=== PATIENT | male | born 1950 | race Caucasian/White ===

== ENCOUNTER 2016-10-27 10:56 | Inpatient (IN) | payer OTHER ==
[~2016-10-27] VITALS: Ht 167.6 cm; Wt 78.9 kg
[~2016-10-27 10:56] MED LIST: SITA1TAB7 PO
--- NOTE | 2016-10-27 14:44 | RADRPT ---
PROCEDURE: US Lower extremity Venous. CLINICAL INDICATION: Left leg pain TECHNIQUE: Multiple sonographic images of the left lower extremity deep venous system was obtained utilizing grayscale, color-flow, compressive sonography and doppler imaging with augmentation. The images were reviewed on a PACS workstation. COMPARISON: None. FINDINGS: There is no compressibility or flow within the left common femoral, superficial femoral, and poplite al veins. RPTAT: AA IMPRESSION: Extensive left leg DVT. The findings were given to Cydney Gibson Pa-c (José BROOKE) at 10/27/2016 2:42:23 PM by the techno logist at the time of examination. .Scott Berkowitz MD, MD Date Time Electronically viewed and signed by .Scott Berkowitz MD, on 10/27/2016 14:43 .S/
[2016-10-27] MEDS ORDERED: APIXABAN 5 MG TABLET PO ONE (15:00)
[2016-10-27] MEDS ORDERED: ONDANSETRON 4 MG INJ IV PRN ×2 (15:00→15:30)
[2016-10-27] MEDS ORDERED: ACETAMINOPHEN 325 MG TAB PO PRN ×2 (15:00→15:30)
[2016-10-27 15:27] LABS: BASOPHILS % 0.3 % (0.0-2.0); EOSINOPHILS % 0.4 % (0.0-7.0); HEMATOCRIT 46.4 % (42.0-52.0); LYMPHOCYTES # 1.2 10^3/ul (0.8-2.9); LYMPHOCYTES % 14.1 % (15.0-51.0); MEAN CORPUSCULAR HEMOGLOBIN 32.2 pg (29.0-33.0); MEAN CORPUSCULAR HGB CONC 34.5 g/dl (32.0-37.0); MEAN CORPUSCULAR VOLUME 93.6 fl (82.0-101.0); MEAN PLATELET VOLUME 7.5 fl (7.4-10.4); MONOCYTE # 0.6 10^3/ul (0.3-0.9); MONOCYTES % 6.9 % (0.0-11.0); NEUTROPHIL # 6.5 10^3/ul (1.6-7.5); NEUTROPHILS % 78.3 % (39.0-77.0); PLATELET COUNT 166 10^3/UL (140-440); RED BLOOD COUNT 4.96 10^6/ul (4.70-6.10); RED CELL DISTRIBUTION WIDTH 13.1 % (11.5-14.5); UNCORRECTED WBC 8.3 10^3/ul (4.8-10.8); WHITE BLOOD COUNT 8.3 10^3/ul (4.8-10.8)
[2016-10-27] MEDS ORDERED: NACL 0.9% 3 ML SYG IV SCH (15:30)
[2016-10-27] MEDS ORDERED: hydrALAzine 20 MG INJ IV PRN (15:30)
[2016-10-27] MEDS ORDERED: HYDROCODONE/APAP (5/325) TAB PO PRN (15:30)
[2016-10-27] MEDS ORDERED: morphine 2 MG INJ IV PRN (15:30)
[2016-10-27 15:31] LABS: PARTIAL THROMBOPLASTIN TIME 25.2 Sec (25.0-35.0); PROTIME 13.2 Sec (12.2-14.2)
[2016-10-27 15:35] LABS: CONDITION 1
[2016-10-27 15:38] VITALS: TEMP 98.1
[2016-10-27 15:49] LABS: POTASSIUM 4.6 mmol/L (3.5-5.1)
[2016-10-27 15:52] LABS: CALCIUM 9.9 mg/dl (8.4-10.2); CREATININE 1.41 mg/dl (0.61-1.24)
[2016-10-27] MEDS ORDERED: GLUCOSE GEL 15 GRAM TUBE PO PRN ×2 (16:00)
[2016-10-27] MEDS ORDERED: GLUCOSE GEL 15 GRAM TUBE BUCCAL PRN (16:00)
[2016-10-27] MEDS ORDERED: DEXTROSE 50% 50 ML SYRINGE IV PRN ×2 (16:00)
[2016-10-27] MEDS ORDERED: GLUCAGON 1 MG INJ IM PRN (16:00)
--- NOTE | 2016-10-27 16:03 | ERD ---
DATE OF SERVICE: 10/27/2016 HISTORY OF PRESENT ILLNESS: The patient is a 66-year-old male coming in complaining of swelling to his left leg with pain. He has noticed this starting yesterday. He has pain with flexion, walking, mild numbness and tingling to his extremities. He has had a history of blood clots in the past. L ast blood clot was in 2001. Patient is on aspirin but does not know if he is on any other medicati ons. He has not had any recent travel, no recent surgical history. No history of cancer. MEDICAL HISTORY: Hypercholesterolemia, hypertension. ALLERGIES TO MEDICATIONS: Denies. HOSPITALIZATIONS: Denies. SOCIAL HISTORY: Denies. REVIEW OF SYSTEMS: A 12-point review of systems was done. Refer to HPI for positives, all other sy stems negative. PHYSICAL EXAMINATION VITAL SIGNS: Temperature is 98.1, pulse 88, blood pressure 134/89, respiratory 18, O2 saturation 98 % on room air. Pain intensity of 4/10. GENERAL: The patient is well-appearing, well-nourished, no acute distress. HEENT: Atraumatic. Conjunctivae are pink. Pupils equal, round, and reactive to light. There is no s cleral icterus. Tympanic membranes clear bilaterally. Oropharynx clear. No nystagmus or photophobia . CHEST: Clear to auscultation bilaterally. There are no rales, wheezes or rhonchi. HEART: Regular rate and rhythm. No murmurs, clicks, rubs or gallops. No S3 or S4. ABDOMEN: Soft, nontender and nondistended. Good bowel sounds. No rebound or guarding. No gross domingo tonitis. No gross organomegaly or masses. No Adams sign or McBurney point tenderness. EXTREMITIES: The patient has swelling noted to the left extremity and pitting edema. The patient h as a positive Homans sign. He has tenderness to palpation over the posterior calf as well as behind the left knee extending up the leg. Pulses are intact. Cap refill is less than 2 seconds in dista l extremity. EMERGENCY ROOM COURSE: The patient had an x-ray done of the left lower extremity which showed exten sive left leg DVT, no compressibility or flow within the left common femoral, superficial femoral an d popliteal veins. This case was discussed with Dr. Tran about patient's admission. Patient will be admitted for medication. He was given a dose of Eliquis as well as drawn labs for CBC and PT, P TT, INR. Patient was stable. DIAGNOSIS: Deep venous thrombosis, left leg. MEDICAL DECISION MAKING: I have low suspicion for PE. The patient is not complaining of pleuritic chest pain or hemoptysis. Patient does not have shortness of breath. He is not tachycardic. The p atient will be admitted for anticoagulation therapy and close followup. DISPOSITION: Admission under the care of Dr. Tran to hospitalist. The patient was stable at the time of admission and aware of the diagnosis. Dictated By: TORRES LADD PA for RANDY LOGAN/PAULA Conf#: [id number] DID#: [id number]
[2016-10-27 16:05] VITALS: Ht 167.6 cm; Wt 78.9 kg
[2016-10-27 16:16] VITALS: BP 145/73; PULSE 71; RESP 16
--- NOTE | 2016-10-27 16:19 | HP ---
DATE OF ADMISSION: 10/27/2016 TIME OF EVALUATION: 1500 hours. REASON FOR ADMISSION: Left lower extremity swelling and pain. CONSULTATIONS: RITESH RUIZ MD, Vascular Surgery. HISTORY OF PRESENT ILLNESS: This is a 66-year-old male with past medical history of essential hypertension, type 2 diabetes mellitus, dyslipidemia and left lower extremity DVT in 2001. He came to the emergency room with chief complaint of left lower extremity swelling and pain. The patient verbalized that the pain and swelling got worse since 3:00 a.m. on 10/27. The patient was having pain from all the way up to the left thigh to the left foot. The patient was also complaining of numbness of the left lower extremity. The patient denied any recent prolonged bed rest. He denied any recent long flights or long drives. The patient denied any family history of DVTs. The patient was unable to explain how he was treated for his left lower extremity DVT in 2001. The patient denied any chest pain or dyspnea. He denied any syncope or presyncope. He denied any fevers, chills, nausea, vomiting, abdominal pain, diarrhea, hematochezia, or dysuria. In the emergency room, the patient underwent a left lower extremity venous Doppler study that showed no compressibility or flow within the left common femoral, superficial femoral and popliteal veins. The patient was given a single dose of oral factor Xa inhibitor (Apixaban) in the emergency room. Vascular surgery consult was called by the ER physician. PAST MEDICAL HISTORY: Type 2 diabetes mellitus, essential hypertension and dyslipidemia. Left lower extremity DVT in 2001. PAST SURGICAL HISTORY: Denies. HOME MEDICATIONS: A complete list of the patient's home medications is not available at this time. However, during the ER course, it was stated the patient was taking Janumet mg 1 tablet p.o. with breakfast and dinner. ALLERGIES: NO KNOWN DRUG ALLERGIES. SOCIAL HISTORY: The patient lives at home with his family. Denies any use of tobacco, alcohol or illicit drug use. FAMILY HISTORY: Positive for diabetes. No family history of hypercoagulable state. REVIEW OF SYSTEMS: A 12-point review of systems are negative other than what is mentioned in history of present illness. PHYSICAL EXAMINATION: VITAL SIGNS: Temperature 98.1, pulse rate 88, respiratory rate 18, blood pressure 134/80, oxygen saturation 98% on room air. GENERAL: This is slightly overweight 66-year-old male lying in bed in no apparent distress. HEENT: Head normocephalic and atraumatic. Eyes: Anicteric sclerae. Conjunctivae clear. ENT: Nasal septum is midline. Oral mucosa is dry. NECK: Supple. No JVD noticed. RESPIRATORY: Bilaterally clear to auscultation. No adventitious breath sounds heard. No use of accessory muscles of respiration. CARDIAC: Regular rhythm and rate. No murmurs. GASTROINTESTINAL: Abdomen soft, nontender, nondistended. Bowel sounds positive in all 4 quadrants. GENITOURINARY: Deferred. EXTREMITIES: No cyanosis, no clubbing. Pedal pulses are palpable. Left lower extremity erythema and edema with tenderness to touch. NEUROLOGIC: The patient is awake, alert and oriented. Moves all 4 extremities. SKIN: Clean, dry and intact. LABORATORY AND DIAGNOSTIC DATA: 1. PT 13.0, INR 1.03, PTT 25.2 2. Left lower extremity Doppler study for left leg DVT. No compressibility or flow within the left common femoral, superficial femoral and popliteal veins. IMPRESSION: This is a 66-year-old male who came to the emergency room with chief complaint of left lower extremity pain and edema who was noticed to have left lower extremity extensive deep venous thrombosis who will be admitted here for further treatment and evaluation. ASSESSMENT AND PLAN: 1. Left lower extremity extensive DVT. The patient will be started on therapeutic Lovenox. A vascular surgery consult will be obtained on this patient provided the extensive deep venous thrombosis on this patient. He also has prior history of deep venous thrombosis. Hypercoagulable workup will be done on this patient. 2. Essential hypertension. The patient will be started on routine antihypertensives. The patient will also be started on p.r.n. antihypertensives for any systolic blood pressure readings greater than 160 mmHg. 3. Dyslipidemia. The patient will be started on a statin. A fasting lipid panel will be obtained. The patient will be maintained on a low cholesterol diet. 4. Type 2 diabetes mellitus. The patient's oral agents will be put on hold. The patient will be started on insulin sliding scale along with basal insulin and premeal insulin. Hemoglobin A1c will be obtained to evaluate the blood glucose control over the past few weeks. Plan. The patient will be admitted to inpatient medical/surgical floor. The patient will be started on a carbohydrate controlled, low cholesterol diet. The patient will be started on therapeutic anticoagulation. The patient will be started on gastrointestinal prophylaxis. The patient will remain a full code. The rest of the patient's management will be based on the clinical course, the results of diagnostic studies, and inputs from consultants. Based on the patient's clinical presentation, he most probably requires at least 2 midnights' stays for further management and evaluation of his clinical presentation. The case and management of this patient was fully discussed with Dr. Wagner. Approximately 50 minutes was spent on the history and physical on this patient. MINAL WAGNER MD, AM/PAULA Conf#: [id number] DID#: [id number] MTDD
[2016-10-27] MEDS: INSULIN ASPART [NOVOLOG] 3 ML PEN SC SCH ×3 (17:21→21:00)
[2016-10-27 19:52] VITALS: BP 107/64; RESP 18
[2016-10-27] MEDS: ATORVASTATIN 20 MG TAB PO SCH (22:35)
[2016-10-27] MEDS: FAMOTIDINE 20 MG TAB PO SCH (22:35)
[2016-10-27] MEDS: INSULIN GLARGINE [LANtus] 3 ML PEN SC SCH (22:39)
[2016-10-27] MEDS: ENOXAPARIN 80 MG/0.8 ML SYG SC SCH (22:40)
[2016-10-28 05:53] LABS: BASOPHILS % 0.2 % (0.0-2.0); EOSINOPHILS # 0.1 10^3/ul (0.0-0.5); EOSINOPHILS % 2.5 % (0.0-7.0); HEMOGLOBIN 14.9 g/dl (14.0-18.0); LYMPHOCYTES # 1.2 10^3/ul (0.8-2.9); MEAN CORPUSCULAR HEMOGLOBIN 32.6 pg (29.0-33.0); MEAN CORPUSCULAR HGB CONC 34.7 g/dl (32.0-37.0); MEAN CORPUSCULAR VOLUME 93.8 fl (82.0-101.0); MEAN PLATELET VOLUME 7.3 fl (7.4-10.4); MONOCYTE # 0.6 10^3/ul (0.3-0.9); MONOCYTES % 10.3 % (0.0-11.0); NEUTROPHIL # 3.9 10^3/ul (1.6-7.5); PLATELET COUNT 158 10^3/UL (140-440); RED BLOOD COUNT 4.58 10^6/ul (4.70-6.10); RED CELL DISTRIBUTION WIDTH 13.6 % (11.5-14.5); UNCORRECTED WBC 5.9 10^3/ul (4.8-10.8); WHITE BLOOD COUNT 5.9 10^3/ul (4.8-10.8)
[2016-10-28 06:06] LABS: CONDITION 1
[2016-10-28 06:40] LABS: ALBUMIN 3.9 g/dl (3.3-4.9)
[2016-10-28 06:41] LABS: POTASSIUM 4.4 mmol/L (3.5-5.1)
[2016-10-28 06:43] LABS: ALBUMIN/GLOBULIN RATIO 1.21; BILIRUBIN,INDIRECT 0.7 mg/dl (0-1.1); BILIRUBIN,TOTAL 0.7 mg/dl (0.2-1.3); CALCIUM 9.8 mg/dl (8.4-10.2); CREATININE 1.24 mg/dl (0.61-1.24); TOTAL PROTEIN 7.1 g/dl (6.1-8.1)
[2016-10-28 07:47] VITALS: BP 100/68; RESP 18
[2016-10-28 07:54] LABS: PHOSPHORUS 5.4 mg/dl (2.5-4.9)
[2016-10-28 07:55] LABS: MAGNESIUM 1.6 mg/dl (1.7-2.5)
[2016-10-28] MEDS: FAMOTIDINE 20 MG TAB PO SCH ×2 (08:22→21:22)
[2016-10-28] MEDS: ENOXAPARIN 80 MG/0.8 ML SYG SC SCH ×2 (08:24→21:25)
[2016-10-28] MEDS: INSULIN ASPART [NOVOLOG] 3 ML PEN SC SCH ×7 (08:24→21:00)
[2016-10-28] MEDS: LISINOPRIL 5 MG TAB PO SCH (08:26)
--- NOTE | 2016-10-28 08:29 | PN ---
Date/Time of Note Date/Time of Note DATE: 10/28/16 TIME: 08:27 Assessment/Plan VTE Prophylaxis VTE Prophylaxis Intervention: LMWH (Therapeutic dose) Lines/Catheters IV Catheter Type (from [facility]): [place] Assessment/Plan Chief Complaint/Hosp Course 1. Left lower extremity extensive DVT. Continue therapeutic Lovenox. Vascular surgery input appreciated. Hypercoagulable workup pending. 2. Essential hypertension. The patient will be continued on routine antihypertensives. The patient will also be continued on p.r.n. antihypertensives for any systolic blood pressure readings greater than 160 mmHg. 3. Dyslipidemia. The patient will continued on statin. Fasting lipid panel optimal. The patient will be maintained on a low cholesterol diet. 4. Type 2 diabetes mellitus. The patient's oral agents will be put on hold. The patient will be maintained on insulin sliding scale along with basal insulin and premeal insulin. Hemoglobin A1c 9.5. 5. Fluids, electrolytes, and nutrition. Carbohydrate controlled, low- cholesterol diet. 6. DVT prophylaxis. On therapeutic Lovenox. 7. Gastrointestinal prophylaxis. Histamine 2 receptor blockers. 8. Plan. Replete magnesium. Continue therapeutic anticoagulation. Await further recommendations from vascular surgery. Case discussed with Dr. Todd. Problems: Subjective 24 Hr Interval Summary Free Text/Dictation Denies any LLE pain. Exam/Review of Systems Vital Signs Vitals Vital Signs Date Time Temp Pulse Resp B/P Pulse Ox O2 Delivery O2 Flow Rate FiO2 10/28/16 07:47 97.6 58 18 100/68 97 10/27/16 16:16 Room Air Intake and Output 10/27/16 10/27/16 10/28/16 15:00 23:00 07:00 Intake Total 480 ml 520 ml Balance 480 ml 520 ml Exam GENERAL: This is a slightly overweight 66-year-old male lying in bed in no apparent distress. HEENT: Head normocephalic and atraumatic. Eyes: Anicteric sclerae. Conjunctivae clear. ENT: Nasal septum is midline. Oral mucosa is dry. NECK: Supple. No JVD noticed. RESPIRATORY: Bilaterally clear to auscultation. No adventitious breath sounds heard. No use of accessory muscles of respiration. CARDIAC: Regular rhythm and rate. No murmurs. GASTROINTESTINAL: Abdomen soft, nontender, nondistended. Bowel sounds positive in all 4 quadrants. GENITOURINARY: Deferred. EXTREMITIES: No cyanosis, no clubbing. Pedal pulses are palpable. Left lower extremity erythema and edema with tenderness to touch. NEUROLOGIC: The patient is awake, alert and oriented. Moves all 4 extremities. SKIN: Clean, dry and intact. Results Result Diagram: 10/28/16 0525 10/28/16 0525 Results 24 hrs Laboratory Tests Test 10/27/16 14:57 10/27/16 16:00 10/27/16 16:38 10/27/16 17:00 Activated Partial Thromboplast Time 25.2 Anion Gap 21 H Basophils # 0.0 Basophils % 0.3 Blood Urea Nitrogen 19 Calcium Level 9.9 Carbon Dioxide Level 24 Chloride Level 100 Creatinine 1.41 H Eosinophils # 0.0 Eosinophils % 0.4 Glucose Level 166 Hematocrit 46.4 Hemoglobin 16.0 INR International Normalized Ratio 1.00 Lymphocytes # 1.2 Lymphocytes % 14.1 L Mean Corpuscular Hemoglobin 32.2 Mean Corpuscular Hemoglobin Concent 34.5 Mean Corpuscular Volume 93.6 Mean Platelet Volume 7.5 Monocytes # 0.6 Monocytes % 6.9 Neutrophils # 6.5 Neutrophils % 78.3 H Nucleated Red Blood Cells # 0.0 Nucleated Red Blood Cells % 0.0 Platelet Count 166 Potassium Level 4.6 Prothrombin Time 13.2 Prothrombin Time Ratio 1.0 Red Blood Count 4.96 Red Cell Distribution Width 13.1 Sodium Level 140 White Blood Count 8.3 # Thyroid Stimulating Hormone (TSH) 1.020 Bedside Glucose 157 Free Thyroxine 1.16 Hemoglobin A1c 9.5 H Test 10/27/16 21:23 10/27/16 22:37 10/28/16 05:25 10/28/16 07:51 Bedside Glucose 74 144 171 Alanine Aminotransferase (ALT/SGPT) 27 Albumin 3.9 Albumin/Globulin Ratio 1.21 Alkaline Phosphatase 65 Anion Gap 18 H Aspartate Amino Transf (AST/SGOT) 21 Basophils # 0.0 Basophils % 0.2 Blood Morphology Comment Blood Urea Nitrogen 31 #H Calcium Level 9.8 Carbon Dioxide Level 25 Chloride Level 101 Cholesterol Level 164 Cholesterol/HDL Ratio 3.0 Creatinine 1.24 Direct Bilirubin 0.00 Eosinophils # 0.1 Eosinophils % 2.5 Globulin 3.20 Glucose Level 171 HDL Cholesterol 54 Hematocrit 43.0 Hemoglobin 14.9 Indirect Bilirubin 0.7 LDL Cholesterol, Calculated 82 Lymphocytes # 1.2 Lymphocytes % 21.0 Magnesium Level 1.6 L Mean Corpuscular Hemoglobin 32.6 Mean Corpuscular Hemoglobin Concent 34.7 Mean Corpuscular Volume 93.8 Mean Platelet Volume 7.3 L Monocytes # 0.6 Monocytes % 10.3 Neutrophils # 3.9 Neutrophils % 66.0 Nucleated Red Blood Cells # 0.0 Nucleated Red Blood Cells % 0.0 Phosphorus Level 5.4 H Platelet Count 158 Potassium Level 4.4 Red Blood Count 4.58 L Red Cell Distribution Width 13.6 Sodium Level 140 Total Bilirubin 0.7 Total Protein 7.1 Triglycerides Level 141 White Blood Count 5.9 # Medications Medications Current Medications Ondansetron HCl (Zofran Inj) 4 mg Q6H PRN IV NAUSEA AND/OR VOMITING; Start 09/02 at 15:30 Acetaminophen (Tylenol Tab) 650 mg Q6H PRN PO PAIN LEVEL 1-3 OR FEVER; Start at 15:30 Acetaminophen/ Hydrocodone Bitart ([place] (5/325)) 1 tab Q6H PRN PO MODERATE PAIN LEVEL 4-6; Start 10/27/16 at 15:30 Morphine Sulfate (morphine) 2 mg Q4H PRN IV SEVERE PAIN LEVEL 7-10; Start 10/27 at 15:30 Famotidine (Pepcid) 20 mg Q12 PO Last administered on 10/27/16 22:35; Admin Dose 20 MG; Start 10/27/16 at 21:00 Enoxaparin Sodium (Lovenox) 80 mg Q12 SC Last administered on 10/27/16 22:40; Admin Dose 80 MG; Start 10/27/16 at 21:00 Insulin Glargine (Lantus) 16 unit HS SC Last administered on 10/27/16 22:39; Admin Dose 16 UNIT; Start 10/27/16 at 21:00 Hydralazine HCl (Apresoline) 10 mg Q6H PRN IV SbP>160; Start 10/27/16 at 15:30 Lisinopril (Zestril) 5 mg DAILY PO ; Start 10/28/16 at 09:00 Atorvastatin Calcium (Lipitor) 20 mg HS PO Last administered on 10/27/16 22:35 ; Admin Dose 20 MG; Start 10/27/16 at 21:00 Miscellaneous Information 1 ea NOTE XX ; Start 10/27/16 at 16:00 Glucose (Glutose) 15 gm Q15M PRN PO DECREASED GLUCOSE; Start 10/27/16 at 16:00 Glucose (Glutose) 22.5 gm Q15M PRN PO DECREASED GLUCOSE; Start 10/27/16 at 16: 00 Dextrose (D50w Syringe) 25 ml Q15M PRN IV DECREASED GLUCOSE; Start 10/27/16 at 16:00 Dextrose (D50w Syringe) 50 ml Q15M PRN IV DECREASED GLUCOSE; Start 10/27/16 at 16:00 Glucagon (Glucagen) 1 mg Q15M PRN IM DECREASED GLUCOSE; Start 10/27/16 at 16:00 Glucose (Glutose) 15 gm Q15M PRN BUCCAL DECREASED GLUCOSE; Start 10/27/16 at 16 :00 MINAL LÓPEZ NP Oct 28, 2016 08:29
[2016-10-28] MEDS ORDERED: MAGNESIUM SULFATE 2 GM/50 ML 50 ML IVPB ONE (09:30)
--- NOTE | 2016-10-28 13:51 | CONS ---
DATE OF ADMISSION: 10/27/2016 DATE OF CONSULTATION: 10/28/2016 VASCULAR SURGERY CONSULTATION Dear Doctors: Mr. Hill is a 66-year-old gentleman who presented to us with a history of DVT back in 2011 of the left lower extremity in which he has a new occurrence of a left lower extremity swelling and pain t hat he has had for a couple days. The patient mentioned that the swelling had become unbearable and he came into the emergency room for evaluation. Upon evaluation, he had underwent an ultrasound th at identified patient having an acute onset of deep vein thrombosis at the popliteal, femoral, and c ommon femoral veins. The patient denies family history of any strokes or DVTs in the past. At the moment, the patient denies shortness of breath, chest pain, nausea, vomiting, fever, or chills. He denies claudication or rest pain-like symptoms. PAST MEDICAL HISTORY: Entails diabetes type 2, hypertension, dyslipidemia, DVT in 2012, and cholest erolemia. PAST SURGICAL HISTORY: None. REVIEW OF SYSTEMS: A 12-point review performed and negative except what is mentioned in the HPI. ALLERGIES: NO KNOWN DRUG ALLERGIES. SOCIAL HISTORY: Denies tobacco, alcohol or illicit drug use. FAMILY HISTORY: Positive for diabetes and coronary artery disease. PHYSICAL EXAMINATION: GENERAL: Alert and oriented x3 in no apparent distress. HEENT: Normocephalic, atraumatic. PERRLA, EOMI. Mucosa moist. NECK: Supple. No carotid bruit. PULMONARY: Clear to auscultation bilaterally. No crackles. CARDIOVASCULAR: S1, S2 present. No murmurs. ABDOMEN: Soft, nontender, nondistended. Bowel sounds positive. EXTREMITIES: Right lower extremity palpable femoral pulse, palpable pedal pulse. Motor and sensory intact. Capillary refill 2+. No edema. Left lower extremity palpable femoral pulse, faint pedal pulse secondary to edema. Motor, sensory i ntact. Cap refill 2 to 3 seconds. Edema from the calf all the way up to the upper thigh, tender up on palpation. ASSESSMENT AND PLAN: Left lower extremity deep vein thrombosis: It seems that the patient has deve loped a new onset of a DVT of the femoral and common femoral vein. The patient has had a history of DVT, but he cannot recall as if any workup was done at that time. Considering the fact that he had early onset of DVT at a young age, being in his 50s, would recommend for the patient to undergo hyp ercoagulable workup and have hematology evaluation. I have discussed with the patient options for e ndovascular intervention versus just anticoagulation, and he would like to have a discussion with hi s family in regards for that. At the moment, he would like to be prepared for that procedure once he decides to go forward with it ; therefore, we will plan to obtain a CT scan of the head to evaluate for any intracranial mass or a ny abnormalities. Continue with anticoagulation for now and would not hold it prior to procedure. Optimize vascular status (BP meds, diet, nutrition, exercise, sugar control, and antiplatelets). Discussed findings, plan, and management with the patient. He understands. Discussed complications of endovascular thrombolysis, thrombectomy, and possible IVC filter placement. He understands. Thank you for allowing us to partake in the care of your patient. Please call with any questions. Dictated By: RITESH ELLIOTT/PAULA Conf#: [id number] DID#: [id number]
--- NOTE | 2016-10-28 14:07 | RADRPT ---
PROCEDURE: CT Brain without contrast. CLINICAL INDICATION: intracranial mass TECHNIQUE: Axial imaging was obtained of the head without intravenous contrast administration using a multi-slice CT scanner. Standard CT scan of the head without contrast protocols were performed. The CTDIvol is 44.84 mGy and the DLP is 630.2 mGycm. COMPARISON: None FINDINGS: The ventricular system and peripheral CSF spaces are proportionate prominent consistent with the pat ient's age. Negative for intracranial masses hemorrhages or midline shift. In the superior posteri or right frontal lobe is a 0.7 cm coarse calcification which may represent previous inflammatory dis ease or old trauma. The bones and calvarium are intact. The paranasal sinuses and mastoids visuali zed are unremarkable. IMPRESSION: 1. No evidence of intracranial masses hemorrhages or midline shift. 2. Coarse calcification in the posterior superior right frontal lobe may represent previous inflamm atory disease or old trauma. RPTAT:AAJJ Physician Osbaldo Date Time Electronically viewed and signed by Physician Osbaldo on 10/28/2016 14:07 /
[2016-10-28 19:43] VITALS: BP 139/71; RESP 18
[2016-10-28] MEDS: ATORVASTATIN 20 MG TAB PO SCH (21:22)
[2016-10-28] MEDS: INSULIN GLARGINE [LANtus] 3 ML PEN SC SCH (21:25)
[2016-10-29] VITALS (15 sets, daily range): BP systolic 109–175; BP diastolic 68–92; PULSE 46–60; RESP 16–31
[2016-10-29] MEDS: SOD CHLORIDE 0.9% 1,000 ML IV SCH ×2 (00:14→10:00)
[2016-10-29 05:58] LABS: BASOPHILS % 0.4 % (0.0-2.0); EOSINOPHILS # 0.1 10^3/ul (0.0-0.5); EOSINOPHILS % 1.3 % (0.0-7.0); HEMATOCRIT 42.1 % (42.0-52.0); HEMOGLOBIN 14.9 g/dl (14.0-18.0); LYMPHOCYTES # 1.4 10^3/ul (0.8-2.9); LYMPHOCYTES % 25.6 % (15.0-51.0); MEAN CORPUSCULAR HGB CONC 35.5 g/dl (32.0-37.0); MEAN CORPUSCULAR VOLUME 92.8 fl (82.0-101.0); MEAN PLATELET VOLUME 7.5 fl (7.4-10.4); MONOCYTE # 0.5 10^3/ul (0.3-0.9); NEUTROPHIL # 3.3 10^3/ul (1.6-7.5); NEUTROPHILS % 62.7 % (39.0-77.0); PLATELET COUNT 161 10^3/UL (140-440); RED BLOOD COUNT 4.53 10^6/ul (4.70-6.10); UNCORRECTED WBC 5.3 10^3/ul (4.8-10.8); WHITE BLOOD COUNT 5.3 10^3/ul (4.8-10.8)
[2016-10-29 06:19] LABS: CONDITION 1
[2016-10-29 06:28] LABS: MAGNESIUM 1.4 mg/dl (1.7-2.5); PHOSPHORUS 4.3 mg/dl (2.5-4.9)
[2016-10-29 06:34] LABS: POTASSIUM 4.2 mmol/L (3.5-5.1)
[2016-10-29 06:37] LABS: CREATININE 1.08 mg/dl (0.61-1.24)
[2016-10-29 06:38] LABS: CALCIUM 9.6 mg/dl (8.4-10.2)
[2016-10-29] MEDS: ENOXAPARIN 80 MG/0.8 ML SYG SC SCH ×2 (07:59→20:56)
[2016-10-29] MEDS: INSULIN ASPART [NOVOLOG] 3 ML PEN SC SCH ×7 (07:59→20:51)
[2016-10-29] MEDS ORDERED: HEPARIN 1000 UNITS/NS (A-LINE) 1,000 ML ONE ×2 (08:09)
[2016-10-29] MEDS ORDERED: IODIXANOL LOCM 100 ML BTL ONE ×2 (08:09→08:57)
[2016-10-29] MEDS ORDERED: LIDOCAINE 1% (MDV) 20 ML INJ ONE (08:09)
[2016-10-29] MEDS ORDERED: MIDAZOLAM 1 MG/ML 2 ML INJ ONE (08:09)
[2016-10-29] MEDS ORDERED: FENTAnyl 50 MCG/ML VIAL ONE (08:10)
[2016-10-29] MEDS: FAMOTIDINE 20 MG TAB PO SCH ×2 (09:00→20:53)
[2016-10-29] MEDS: LISINOPRIL 5 MG TAB PO SCH (09:00)
[2016-10-29] MEDS ORDERED: IODIXANOL LOCM 50 ML BTL ONE ×3 (09:06→09:52)
[2016-10-29] MEDS ORDERED: SOD CHLORIDE 0.9% 500 ML ONE (09:06)
--- NOTE | 2016-10-29 13:04 | OPR ---
DATE OF OPERATION: 10/29/2016 SURGEON: Dallin Nair MD FLUOROSCOPY SERNA: Yair Brandon MD PREOPERATIVE DIAGNOSIS: Left lower extremity deep vein thrombosis involving left popliteal vein, le ft femoral vein, left common femoral vein. POSTOPERATIVE DIAGNOSIS: Left lower extremity deep vein thrombosis involving left popliteal vein, l eft femoral vein, left common femoral vein. ANESTHESIA: Local with sedation. BLOOD LOSS: Minimal. COMPLICATIONS: None. HEPARIN: 5000 units intravenously. CONTRAST: As recorded. ACCESS: 8-Samoan sheath, left popliteal vein. CLOSURE: Manual compression. INDICATIONS: This is a 66-year-old gentleman with a history of left lower extremity deep venous thr ombosis in 2001 who has presented with acute on chronic left lower extremity deep venous thrombosis associated with pain, swelling, and discomfort. The patient has been informed of the alternatives, risks, and benefits of venogram, balloon venoplasty, and stenting. Further, the patient was also in formed of thrombectomy, thrombolysis. Risks including, but not limited to, bleeding, thrombosis, em bolization, myocardial infarction, , stroke, device malfunction, infection, nephrotoxicity, pul monary embolism, and has agreed to proceed. PROCEDURE: Ultrasound-guided axis of the left popliteal vein. PROCEDURES: 1. Ultrasound-guided access of the left popliteal vein. 2. Left lower extremity venogram. 3. Inferior vena cava venogram. 4. Mechanical thrombectomy of the left popliteal, femoral, and common femoral vein. 5. Venoplasty with 6 x 100 mm balloon of the femoral and common femoral vein. 6. Inferior vena cava filter placement. FINDINGS: 1. Left popliteal vein thrombus. 2. 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 Left common femoral vein partially patent with acute and chronic disease. There was also acute thrombosis, left external iliac vein pain, left common iliac vein pain, inferior vena cava pain. DESCRIPTION OF PROCEDURE: The patient was brought into the angio suite and positioned in prone posi tion on arthroscopic table. Sedation was administered without any complications. Bilateral poplite al regions were shaved, prepped, and draped in usual standard sterile fashion. A timeout and the ap propriate site was marked and confirmed. Local anesthesia was infiltrated in the region of the left common popliteal vein. The vein was then cannulated with a micro access needle under ultrasound gu idance and the Guidewire was advanced into the femoral vein under fluoroscopic guidance. The needle was removed, the micro catheter was then placed. Using a Bentson wire, was then passed into the il iac vein under fluoroscopic guidance. This was a bit challenging as we had to first use a Glidewire and glide Berenstein in order to cannulate the chronically occluded left femoral vein in which we w ere able to successfully perform and pass the wire across partially occluded common femoral vein wit h acute thrombus. At this point it was identified that the patient had a significant amount of clot burden; therefore, the decision was made to place an IVC filter. At this point, a Bentson wire was appropriately placed and was followed by a short 8-Samoan sheath over the wire. This aspect was a bit challenging in the area secondary to the clot burden in the popliteal and the femoral vein. The sheath was then appropriately flushed with heparinized saline solution. Left lower extremity infer ior cava venogram was conducted and landings were as noted. At this point, we ended up using and ar krystal inferior vena cava filter kit, and we placed the inferior vena cava filter in the L3 region. Wo uld seem to be a bit distal to the bilateral renal veins. The filter ended up being near the bifurc ation of the inferior cava which was satisfactory. At this point, we went ahead and used the AngioJ et device with the Zelante catheter in order to treat the popliteal, femoral, and common femoral vei n thrombosis. Completion venogram was performed and findings were as recanalization of the distal f emoral vein and improved flow through the common femoral vein to the iliac system. At this point, i t was decided to attempt to recannulate and reopened the femoral vein that was chronically occluded with balloon venoplasty. Therefore we used a 6 x 100 mm [employer] balloon in order to recan nulate the fibrosed vein. At this point, we went ahead and performed a balloon venoplasty and it wa s successful. A completion venogram identified adequate flow through the femoral vein into the comm on femoral vein into the iliac system. At this point, all sheaths, wires, catheters were removed an d pressure was held. The patient was taken to the recovery unit in fair condition. PLAN: We will plan to treat the patient for anticoagulation for the next 3 months. We recommend hy percoagulable workup, and for the patient to repeat for a venous duplex in 1 month. We will plan to remove the IVC filter in 3 to 6 months. Dictated By: DALLIN ELLIOTT/PAULA Conf#: [id number] DID#: [id number]
--- NOTE | 2016-10-29 14:34 | PN ---
Date/Time of Note Date/Time of Note DATE: 10/29/16 TIME: 14:33 Assessment/Plan VTE Prophylaxis VTE Prophylaxis Intervention: LMWH Lines/Catheters IV [facility] Peripheral IV Assessment/Plan Chief Complaint/Hosp Course 1. Left lower extremity extensive DVT. Continue therapeutic Lovenox. Hypercoagulable workup pending. S/P mechanical thrombectomy of the left popliteal, femoral, and common femoral vein. S/P IVC filter placement. 2. Essential hypertension. The patient will be continued on routine antihypertensives. The patient will also be continued on p.r.n. antihypertensives for any systolic blood pressure readings greater than 160 mmHg. 3. Dyslipidemia. The patient will continued on statin. Fasting lipid panel optimal. The patient will be maintained on a low cholesterol diet. 4. Type 2 diabetes mellitus. The patient's oral agents will be put on hold. The patient will be maintained on insulin sliding scale along with basal insulin and premeal insulin. Hemoglobin A1c 9.5. 5. Fluids, electrolytes, and nutrition. Carbohydrate controlled, low- cholesterol diet. 6. DVT prophylaxis. On therapeutic Lovenox. 7. Gastrointestinal prophylaxis. Histamine 2 receptor blockers. 8. Plan. Replete magnesium. Continue therapeutic anticoagulation. Will switch the patient to oral anticoagulation on 10/30/2016. Case discussed with Dr. Todd. Problems: Subjective 24 Hr Interval Summary Free Text/Dictation Status post thrombectomy of the left lower extremity and IVC filter placement. Exam/Review of Systems Vital Signs Vitals Vital Signs Date Time Temp Pulse Resp B/P Pulse Ox O2 Delivery O2 Flow Rate FiO2 10/29/16 13:15 47 18 161/71 96 10/29/16 12:15 98.6 Room Air Intake and Output 10/28/16 10/28/16 10/29/16 14:59 22:59 06:59 Intake Total 1190 ml 500 ml Balance 1190 ml 500 ml Exam GENERAL: This is a slightly overweight 66-year-old male lying in bed in no apparent distress. HEENT: Head normocephalic and atraumatic. Eyes: Anicteric sclerae. Conjunctivae clear. ENT: Nasal septum is midline. Oral mucosa is dry. NECK: Supple. No JVD noticed. RESPIRATORY: Bilaterally clear to auscultation. No adventitious breath sounds heard. No use of accessory muscles of respiration. CARDIAC: Regular rhythm and rate. No murmurs. GASTROINTESTINAL: Abdomen soft, nontender, nondistended. Bowel sounds positive in all 4 quadrants. GENITOURINARY: Deferred. EXTREMITIES: No cyanosis, no clubbing. Pedal pulses are palpable. Left lower extremity erythema and edema with tenderness to touch. NEUROLOGIC: The patient is awake, alert and oriented. Moves all 4 extremities. SKIN: Clean, dry and intact. Results Result Diagram: 10/29/16 0515 10/29/16 0515 Results 24 hrs Laboratory Tests Test 10/28/16 16:53 10/28/16 21:21 10/29/16 05:15 10/29/16 07:46 Bedside Glucose 152 162 170 Anion Gap 15 Basophils # 0.0 Basophils % 0.4 Blood Urea Nitrogen 24 H Calcium Level 9.6 Carbon Dioxide Level 29 Chloride Level 103 Creatinine 1.08 Eosinophils # 0.1 Eosinophils % 1.3 Glucose Level 174 Hematocrit 42.1 Hemoglobin 14.9 Lymphocytes # 1.4 Lymphocytes % 25.6 Magnesium Level 1.4 L Mean Corpuscular Hemoglobin 33.0 Mean Corpuscular Hemoglobin Concent 35.5 Mean Corpuscular Volume 92.8 Mean Platelet Volume 7.5 Monocytes # 0.5 Monocytes % 10.0 Neutrophils # 3.3 Neutrophils % 62.7 Nucleated Red Blood Cells # 0.0 Nucleated Red Blood Cells % 0.0 Phosphorus Level 4.3 Platelet Count 161 Potassium Level 4.2 Red Blood Count 4.53 L Red Cell Distribution Width 13.0 Sodium Level 143 White Blood Count 5.3 Test 10/29/16 11:53 Bedside Glucose 179 Medications Medications Current Medications Ondansetron HCl (Zofran Inj) 4 mg Q6H PRN IV NAUSEA AND/OR VOMITING; Start 09/02 at 15:30 Acetaminophen (Tylenol Tab) 650 mg Q6H PRN PO PAIN LEVEL 1-3 OR FEVER; Start at 15:30 Acetaminophen/ Hydrocodone Bitart ([place] (5/325)) 1 tab Q6H PRN PO MODERATE PAIN LEVEL 4-6; Start 10/27/16 at 15:30 Morphine Sulfate (morphine) 2 mg Q4H PRN IV SEVERE PAIN LEVEL 7-10; Start 10/27 at 15:30 Famotidine (Pepcid) 20 mg Q12 PO Last administered on 10/28/16 21:22; Admin Dose 20 MG; Start 10/27/16 at 21:00 Enoxaparin Sodium (Lovenox) 80 mg Q12 SC Last administered on 10/29/16 07:59; Admin Dose 80 MG; Start 10/27/16 at 21:00 Insulin Glargine (Lantus) 16 unit HS SC Last administered on 10/28/16 21:25; Admin Dose 16 UNIT; Start 10/27/16 at 21:00 Hydralazine HCl (Apresoline) 10 mg Q6H PRN IV SbP>160; Start 10/27/16 at 15:30 Lisinopril (Zestril) 5 mg DAILY PO ; Start 10/28/16 at 09:00 Atorvastatin Calcium (Lipitor) 20 mg HS PO Last administered on 10/28/16 21:22 ; Admin Dose 20 MG; Start 10/27/16 at 21:00 Miscellaneous Information 1 ea NOTE XX ; Start 10/27/16 at 16:00 Glucose (Glutose) 15 gm Q15M PRN PO DECREASED GLUCOSE; Start 10/27/16 at 16:00 Glucose (Glutose) 22.5 gm Q15M PRN PO DECREASED GLUCOSE; Start 10/27/16 at 16: 00 Dextrose (D50w Syringe) 25 ml Q15M PRN IV DECREASED GLUCOSE; Start 10/27/16 at 16:00 Dextrose (D50w Syringe) 50 ml Q15M PRN IV DECREASED GLUCOSE; Start 10/27/16 at 16:00 Glucagon (Glucagen) 1 mg Q15M PRN IM DECREASED GLUCOSE; Start 10/27/16 at 16:00 Glucose (Glutose) 15 gm Q15M PRN BUCCAL DECREASED GLUCOSE; Start 10/27/16 at 16 :00 MINAL LÓPEZ NP Oct 29, 2016 14:34
[2016-10-29] MEDS ORDERED: MAGNESIUM SULFATE 3 GM in SOD CHLORIDE 0.9% 100 ML IVPB ONE (16:30)
[2016-10-29] MEDS: ATORVASTATIN 20 MG TAB PO SCH (20:53)
[2016-10-29] MEDS: INSULIN GLARGINE [LANtus] 3 ML PEN SC SCH (20:55)
[2016-10-30 06:53] LABS: BASOPHILS % 0.4 % (0.0-2.0); EOSINOPHILS # 0.2 10^3/ul (0.0-0.5); EOSINOPHILS % 4.3 % (0.0-7.0); HEMATOCRIT 40.9 % (42.0-52.0); HEMOGLOBIN 14.1 g/dl (14.0-18.0); LYMPHOCYTES # 0.9 10^3/ul (0.8-2.9); LYMPHOCYTES % 16.3 % (15.0-51.0); MAGNESIUM 1.6 mg/dl (1.7-2.5); MEAN CORPUSCULAR HEMOGLOBIN 32.6 pg (29.0-33.0); MEAN CORPUSCULAR HGB CONC 34.6 g/dl (32.0-37.0); MEAN CORPUSCULAR VOLUME 94.3 fl (82.0-101.0); MEAN PLATELET VOLUME 7.7 fl (7.4-10.4); MONOCYTE # 0.5 10^3/ul (0.3-0.9); MONOCYTES % 8.6 % (0.0-11.0); NEUTROPHIL # 3.9 10^3/ul (1.6-7.5); NEUTROPHILS % 70.4 % (39.0-77.0); PLATELET COUNT 157 10^3/UL (140-440); RED BLOOD COUNT 4.34 10^6/ul (4.70-6.10); RED CELL DISTRIBUTION WIDTH 13.1 % (11.5-14.5); UNCORRECTED WBC 5.5 10^3/ul (4.8-10.8); WHITE BLOOD COUNT 5.5 10^3/ul (4.8-10.8)
[2016-10-30 07:04] LABS: POTASSIUM 4.7 mmol/L (3.5-5.1)
[2016-10-30 07:07] LABS: CREATININE 0.97 mg/dl (0.61-1.24)
[2016-10-30 07:08] LABS: CALCIUM 9.1 mg/dl (8.4-10.2)
[2016-10-30 07:27] LABS: CONDITION 1
[2016-10-30 07:43] VITALS: BP 117/65; RESP 18
[2016-10-30] MEDS: FAMOTIDINE 20 MG TAB PO SCH (08:17)
[2016-10-30] MEDS: LISINOPRIL 5 MG TAB PO SCH (08:17)
[2016-10-30] MEDS: INSULIN ASPART [NOVOLOG] 3 ML PEN SC SCH ×6 (08:21→17:24)
[2016-10-30] MEDS: ENOXAPARIN 80 MG/0.8 ML SYG SC SCH (08:22)
--- NOTE | 2016-10-30 12:01 | PN ---
Date/Time of Note Date/Time of Note DATE: 10/30/16 TIME: 11:57 Assessment/Plan Lines/Catheters IV Catheter Type (from [facility]): [place] Assessment/Plan Chief Complaint/Hosp Course -Left lower extremity deep vein thrombosis: It seems that the patient had developed acute on chronic DVT of the femoral and common femoral vein. The patient has had a history of DVT, but he cannot recall as if any workup was done at that time. Considering the fact that he had early onset of DVT at a young age, being in his 50s, would recommend for the patient to undergo hypercoagulable workup and have hematology evaluation. -S/P IVC filter placement, thrombectomy and lysis with venoplasty. Patients have resolved -Transition anticoagulation to PO regimen -Will need hypercoagulable workup done prior to discharge -Optimize vascular status (BP meds, diet, nutrition, exercise, sugar control, and antiplatelets). -Discussed findings, plan, and management with the patient with certified continuing education dean and He understands. -Thank you for allowing us to partake in the care of your patient. Please call with any questions. Problems: Subjective 24 Hr Interval Summary no new vascular events overnight, S/P thrombectomy Exam/Review of Systems Vital Signs Vitals Vital Signs Date Time Temp Pulse Resp B/P Pulse Ox O2 Delivery O2 Flow Rate FiO2 10/30/16 07:43 97.9 60 18 117/65 96 10/29/16 20:00 Room Air Intake and Output 10/29/16 10/29/16 10/30/16 15:00 23:00 07:00 Intake Total 1326 ml 580 ml Output Total 2 ml Balance 1324 ml 580 ml Exam Free Text/Dictation GENERAL: Alert and oriented x3 PULMONARY: Clear to auscultation bilaterally. CARDIOVASCULAR: S1, S2 present. . ABDOMEN: Soft, nontender, nondistended. Bowel sounds positive. EXTREMITIES: Right lower extremity palpable femoral pulse, palpable pedal pulse. Motor and sensory intact. Capillary refill 2+. No edema. Left lower extremity palpable femoral pulse, faint pedal pulse secondary to edema. Motor, sensory intact. Cap refill 2 to 3 seconds. Edema from the calf all the way up to the upper thigh has improved, tenderness resolved Results Result Diagram: 10/30/16 0510 10/30/16 0510 RITESH RUIZ MD Oct 30, 2016 12:01
[2016-10-30 12:27] LABS: PROTEIN C >200 % normal (70-180)
--- NOTE | 2016-10-30 12:33 | CONS ---
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 Pt has since undergone thrombectomy of the LLE as well as IVC filter placement. Given his history of recurrent DVT, I do agree that a hypercoagulable workup is warranted as this will help us determine how long the patient needs to be on anticoagulation and if in fact he needs life long treatment. Problems: Additional Assessment/Plan -hypercoagulable workup ordered: will check for FVLeiden mutation, Prothrombin gene Mutation, Protein C and S deficiency, Antithrombin III deficiency, Antiphospholipid antibodies, homocysteine levels -agree that patient can transition oral anticoagulation. recommend Xarelto 15mg BID for 3 weeks then 20mg q day -hypercoagulable workup will take approximately 2 weeks to result. I can go over the results of these tests as an out patient Consultation Date/Type/Reason Admit Date/Time Oct 27, 2016 at 14:54 Date of Consultation: Oct 30, 2016 Type of Consultation: Hematology Reason for Consultation acute DVT Referring Provider: RITESH RUIZ MD Hx of Present Illness 66-year-old male with multiple medical problems including history of left lower extremity DVT in 2001, who presented to the ER with a chief complaint of left lower extremity swelling and pain.. In the ER he had an ultrasound that identified patient having an acute onset of deep vein thrombosis at the popliteal, femoral, and common femoral veins. The patient was given a single dose of oral factor Xa inhibitor (Apixaban) in the emergency room. Pt denies any recent trauma to the LLE nor has be been bed bound or immobile. Pt has been seen by vascular surgery and has since undergone mechanical thrombectomy of the left popliteal, femoral, and common femoral vein , venoplasty with 6 x 100 mm balloon of the femoral and common femoral vein as well as inferior vena cava filter placement. Given his history of DVT, and recurrent clot we have been consulted for hypercoagulable workup. Constitutional: no complaints ENT: no complaints Respiratory: no complaints Cardiovascular: no complaints Gastrointestinal: no complaints Genitourinary: no complaints Musculoskeletal: bone/joint pain, other (LE pain has improved) Skin: no complaints Neurologic: no complaints Past Medical History essential hypertension type 2 diabetes mellitus dyslipidemia left lower extremity DVT in 2001. Family History Significant Family History: no pertinent family hx, other (nofamily history of clotting) Social History Smoking Status: Never smoker Drug Use: none Exam/Review of Systems Vital Signs Vitals Vital Signs Date Time Temp Pulse Resp B/P Pulse Ox O2 Delivery O2 Flow Rate FiO2 10/30/16 07:43 97.9 60 18 117/65 96 10/29/16 20:00 Room Air Intake and Output 10/29/16 10/29/16 10/30/16 15:00 23:00 07:00 Intake Total 1326 ml 580 ml Output Total 2 ml Balance 1324 ml 580 ml Exam Constitutional: alert, oriented Psych: nl mood/affect, no complaints Head: normocephalic Eyes: nl conjunctiva ENMT: nl external ears & nose, nl lips & teeth Neck: non-tender, supple Respiratory: clear to auscultation Cardiovascular: nl pulses, regular rate and rhythm Gastrointestinal: soft Musculoskeletal: other (LLE edema has improved. no pain) Results Result Diagram: 10/30/16 0510 10/30/16 0510 Results 24 hrs Laboratory Tests Test 10/29/16 17:26 10/29/16 20:50 10/30/16 05:10 10/30/16 07:45 Bedside Glucose 240 H 114 158 Anion Gap 15 Basophils # 0.0 Basophils % 0.4 Blood Urea Nitrogen 20 Calcium Level 9.1 Carbon Dioxide Level 29 Chloride Level 103 Creatinine 0.97 Eosinophils # 0.2 Eosinophils % 4.3 Glucose Level 140 Hematocrit 40.9 L Hemoglobin 14.1 Lymphocytes # 0.9 Lymphocytes % 16.3 Magnesium Level 1.6 L Mean Corpuscular Hemoglobin 32.6 Mean Corpuscular Hemoglobin Concent 34.6 Mean Corpuscular Volume 94.3 Mean Platelet Volume 7.7 Monocytes # 0.5 Monocytes % 8.6 Neutrophils # 3.9 Neutrophils % 70.4 Nucleated Red Blood Cells # 0.0 Nucleated Red Blood Cells % 0.0 Phosphorus Level 4.0 Platelet Count 157 Potassium Level 4.7 Red Blood Count 4.34 L Red Cell Distribution Width 13.1 Sodium Level 142 White Blood Count 5.5 Test 10/30/16 11:57 Bedside Glucose 185 Medications Medications Current Medications Ondansetron HCl (Zofran Inj) 4 mg Q6H PRN IV NAUSEA AND/OR VOMITING; Start 09/02 at 15:30 Acetaminophen (Tylenol Tab) 650 mg Q6H PRN PO PAIN LEVEL 1-3 OR FEVER; Start at 15:30 Acetaminophen/ Hydrocodone Bitart ([place]ahan (5/325)) 1 tab Q6H PRN PO MODERATE PAIN LEVEL 4-6; Start 10/27/16 at 15:30 Morphine Sulfate (morphine) 2 mg Q4H PRN IV SEVERE PAIN LEVEL 7-10; Start 10/27 at 15:30 Famotidine (Pepcid) 20 mg Q12 PO Last administered on 10/30/16 08:17; Admin Dose 20 MG; Start 10/27/16 at 21:00 Enoxaparin Sodium (Lovenox) 80 mg Q12 SC Last administered on 10/30/16 08:22; Admin Dose 80 MG; Start 10/27/16 at 21:00 Insulin Glargine (Lantus) 16 unit HS SC Last administered on 10/29/16 20:55; Admin Dose 16 UNIT; Start 10/27/16 at 21:00 Hydralazine HCl (Apresoline) 10 mg Q6H PRN IV SbP>160; Start 10/27/16 at 15:30 Lisinopril (Zestril) 5 mg DAILY PO Last administered on 10/30/16 08:17; Admin Dose 5 MG; Start 10/28/16 at 09:00 Atorvastatin Calcium (Lipitor) 20 mg HS PO Last administered on 10/29/16 20:53 ; Admin Dose 20 MG; Start 10/27/16 at 21:00 Miscellaneous Information 1 ea NOTE XX ; Start 10/27/16 at 16:00 Glucose (Glutose) 15 gm Q15M PRN PO DECREASED GLUCOSE; Start 10/27/16 at 16:00 Glucose (Glutose) 22.5 gm Q15M PRN PO DECREASED GLUCOSE; Start 10/27/16 at 16: 00 Dextrose (D50w Syringe) 25 ml Q15M PRN IV DECREASED GLUCOSE; Start 10/27/16 at 16:00 Dextrose (D50w Syringe) 50 ml Q15M PRN IV DECREASED GLUCOSE; Start 10/27/16 at 16:00 Glucagon (Glucagen) 1 mg Q15M PRN IM DECREASED GLUCOSE; Start 10/27/16 at 16:00 Glucose (Glutose) 15 gm Q15M PRN BUCCAL DECREASED GLUCOSE; Start 10/27/16 at 16 :00 ADA SMITH M.D. Oct 30, 2016 12:26
--- NOTE | 2016-10-30 14:30 | PDOCDIS ---
Discharge Instructions DIAGNOSIS Discharge Diagnosis: Left lower extremity DVT CONDITION Patient Condition: Stable HOME CARE INSTRUCTIONS: Special Diet: Carb controlled, low cholesterol, low fat ACTIVITY: Activity Restrictions: Do not operate Machinery Do not operate Power Tool FOLLOW UP/APPOINTMENTS Appointments 1. Dallin Nair MD, vascular surgery [facility] [address] Office 2. Alicia Villa MD Specialty: Oncology, Hematology Office Address: [address] [place] [address] Office or [phone] (after hours) 3. Robi Matos MD Specialty: Internal Medicine Office Address: [address] [place] [address] Office OTHER ORDERS: Other Orders: 1. Carbohydrate controlled, low-cholesterol diet. 2. Take medications as per prescription. Continue to take anticoagulants for at least 3 months. 3. Follow-up with [vascular surgery] in 2 weeks. 4. Follow-up with [hematology] in 2 weeks. 5. Follow-up with your primary care physician in 2 weeks. If you do not have a primary care physician, please call Dr. Robi Matos's office. 6. Resume activities as tolerated. Use caution when using sharp instruments [ increased risk of bleeding]. Go to the nearest emergency room if you have any chest pain or shortness of breath. MINAL LÓPEZ NP Oct 30, 2016 14:30
[2016-10-30] MEDS ORDERED: ATOR20TA65 PO (14:31)
[2016-10-30] MEDS ORDERED: RIVA15TA PO (14:33)
[2016-10-30] MEDS ORDERED: LISI-313 PO (14:33)
[2016-10-30] MEDS ORDERED: MAGNESIUM CHLORIDE (SR) 64 MG TAB PO ONE (15:00)
[2016-10-30] MEDS ORDERED: RIVAROXABAN 15 MG TABLET PO SCH (17:50)
--- NOTE | 2016-10-30 19:09 | DS ---
DATE OF ADMISSION: 10/27/2016 DATE OF DISCHARGE: 10/30/2016 FINAL DIAGNOSES: 1. Left lower extremity extensive deep venous thrombosis, status post mechanical thrombectomy of the left popliteal, superficial femoral, and common femoral vein, and inferior vena cava filter placement. 2. Essential hypertension. 3. Dyslipidemia. 4. Type 2 diabetes mellitus. CONSULTATIONS: 1. Dr. Dallin Nair, Vascular Surgery. 2. Dr. Alicia Villa, Hematology. HOSPITAL COURSE: This is a 66-year-old male with past medical history of essential hypertension, type 2 diabetes mellitus, dyslipidemia, and left lower extremity DVT in 2001. He came to the emergency room with chief complaint of left lower extremity swelling and pain. The patient believes that the pain and swelling got worse since 3 a.m. on 10/27/2016. The patient was having pain all the way up to the left thigh and down to the left foot. The patient was also complaining of numbness of the left lower extremity. The patient denied any recent prolonged bed rest, long flights, or long drives. The patient denied any family history of DVTs. The patient denied any chest pain or dyspnea. In the emergency room, the patient underwent a left lower extremity venous Doppler study that showed no compressibility or flow within the left common, superficial, femoral, and popliteal veins. The patient was given a single dose of apixaban in the emergency room. Vascular surgery consult was called by the ER physician. Provided the patient's history of present illness and the diagnostic findings, a clinical decision was made to admit the patient to inpatient setting to have him further evaluated. The patient was admitted inpatient to the medical/surgical floor. The patient was started on therapeutic Lovenox. A vascular surgery consult was obtained after a hypercoagulable workup was initiated. The patient was evaluated by Vascular Surgery, and the patient underwent a mechanical thrombectomy of the left popliteal, superficial femoral, and common femoral vein, along with IVC filter placement on 10/29/2016. Status post thrombectomy, the patient was switched to oral factor Xa inhibitors as per hematology and vascular surgery recommendations. Hematology evaluated the patient and ordered additional hypercoagulable workup. Hypercoagulable workup is still pending at this time. Hematology and vascular surgery recommended at least 3 months of anticoagulation for underlying DVT. The patient has a history of essential hypertension. The patient verbalized that he has been taking blood pressure medications at home. However, the patient's home medications list did not show any, hence, the patient was started on CHANTELLE inhibitors since the patient has underlying hypertension. The patient's blood pressure was well controlled. The patient also has underlying dyslipidemia. The patient was started on statins for the same. The patient's fasting lipid panel was suboptimal. The patient has underlying type 2 diabetes mellitus. The patient takes oral agents at home. These were put on hold since admission. The patient's hemoglobin A1c was found to be 9.5, indicating poor blood glucose control over the past few weeks. The patient was maintained on basal insulin, premeal insulin, along with sliding scale, with good control of the patient's blood sugars bleed. The patient had a stable hospital course. The patient was cleared by consultants to be discharged home. The patient denied any complaints at the time of discharge. DISCHARGE PLAN: The patient will be discharged home today. The patient was instructed to take a carbohydrate-controlled, low-cholesterol diet. The patient was instructed to take medications as per prescription, and to continue to take oral anticoagulants for at least 3 months. He was instructed to follow up with Dr. Nair at that [facility] in two weeks. He was instructed to follow up with Dr. Villa in 2 weeks. He was instructed to follow up with his primary care physician in 2 weeks, and if he does not have a primary care physician, to call Dr. Robi Matos's office. He was instructed to resume activities as tolerated. He was instructed to use caution when using sharp instruments because of increased risk of bleeding. He was instructed to go to the nearest emergency room if he has any chest pain or shortness of breath. The patient verbalized understanding of his discharge instructions and agreed on it. CONDITION AT DISCHARGE: Stable. Case management order was put in for insurance authorization for followup with Dr Nair and Dr. Villa, and also for 3-month supply for the patient's Xarelto. DISCHARGE MEDICATIONS: 1. Atorvastatin 20 mg p.o. q.h.s. 2. Lisinopril 5 mg p.o. daily. 3. Xarelto 15 mg p.o. with meals for 21 days, followed by Xarelto 20 mg p.o. with dinner, to complete a course of 3 months. 4. Janumet one tablet p.o. with breakfast and dinner. PERTINENT LABORATORY DATA AND PROCEDURES: 1. Mechanical thrombectomy of the left popliteal, superficial femoral, and common femoral vein with venoplasty of the femoral and common femoral vein, along with inferior vena cava filter placement. 2. Left lower extremity venous Doppler study. No compressibility of flow within the left common femoral, superficial femoral, and popliteal veins. 3. Brain CT scan. No evidence of intracranial masses, hemorrhages, or midline shift, coarse calcification in the posterosuperior right frontal lobe, may represent previous inflammatory disease or older trauma. 4. Latest CBC: WBC 5.5, hemoglobin 14.1, hematocrit 40.9, platelets 157,000. 5. Latest BMP 140, potassium 4.7, chloride 103, bicarbonate 29, anion gap 15, BUN 20, creatinine 0.97, glucose 140, calcium 9.1, phosphorus 4, magnesium 1.63. 6. Hemoglobin A1c 9.5. 7. Fasting lipid panel: Triglycerides 141, total cholesterol 164, LDL 82, HDL 54. 8. Protein C activity greater than 200. 9. Prothrombin gene mutation. Pending. At this time, I would like to thank all the consultants for seeing the patient, doing the necessary procedures, and providing clinical recommendations. The case and management of this patient was already discussed with Dr. Wagner. Approximately 40 minutes was spent on coordinating the discharge on this patient. MINAL WAGNER MD, AM/PAULA Conf#: [id number] DID#: [id number] MTDD
[2016-11-03 10:33] LABS: PROTEIN C 111 % normal (70-180)
[2016-11-03 12:48] LABS: B2 GLYCOPROTEIN I AB (IGA) <9 SAU (< OR = 20); B2 GLYCOPROTEIN I AB (IGG) <9 SGU (< OR = 20); B2 GLYCOPROTEIN I AB (IGM) <9 SMU (< OR = 20)
== END 2016-10-30 18:35 | disposition home or self-care (01) | DRG 272 ==
LOC: FTE 10:56 → MS2 14:54
PROVIDERS: ADMIT Family Medicine; ATTEND Family Medicine
PROC: 06CN3ZZ Extirpation of Matter from Left Femoral Vein, Percutaneous Approach (ICD-10-PCS; principal; 2016-10-29)
PROC: 067N3ZZ Dilation of Left Femoral Vein, Percutaneous Approach (ICD-10-PCS; 2016-10-29)
PROC: 06CY3ZZ Extirpation of Matter from Lower Vein, Percutaneous Approach (ICD-10-PCS; 2016-10-29)
PROC: 06H03DZ Insertion of Intraluminal Device into Inferior Vena Cava, Percutaneous Approach (ICD-10-PCS; 2016-10-29)
DX: I82.412 Acute embolism and thrombosis of left femoral vein (principal); I82.432 Acute embolism and thrombosis of left popliteal vein; I82.512 Chronic embolism and thrombosis of left femoral vein; I10 Essential (primary) hypertension; E11.9 Type 2 diabetes mellitus without complications; E78.5 Hyperlipidemia, unspecified; Z86.718 Personal history of other venous thrombosis and embolism; Z79.84 Long term (current) use of oral hypoglycemic drugs
CPT/HCPCS: 36415; 37191; 70450; 75820; 75978; 80048; 80053; 80061; 81240; 82962; 83036; 83735; 83890; 84100; 84439; 84443; 85025; 85300; 85302; 85305; 85610; 85613; 85730; 86146; 86147; 93971; C1714; C1725; C1769; C1880; C1887; C1894; J1644; J1815; J2250; J3010; J3475; J7030; J7040; Q9967

== ENCOUNTER 2017-08-29 12:34 | Day surgery (SDC) | payer OTHER ==
[~2017-08-29] VITALS: Ht 165.1 cm; Wt 77.0 kg
[~2017-08-29 12:34] MED LIST changes: +ATOR20TA65 PO; +LISI-313 PO; +RIVA15TA PO
[2017-08-29] MEDS ORDERED: GLIP-160 PO (12:59)
[2017-08-29] MEDS ORDERED: ASPI-664 PO (13:00)
[2017-08-29] MEDS ORDERED: LOSA100T7 PO (13:00)
[2017-08-29 13:36] VITALS: Ht 165.1 cm; Wt 77.0 kg
[2017-08-29 13:39] VITALS: BP 143/84; PULSE 89; RESP 16
[2017-08-29 13:45] LABS: ADD UMIC YES; UR ASCORBIC ACID NEGATIVE (NEGATIVE); UR BILIRUBIN (Dip) 1+ mg/dL (NEGATIVE); UR BLOOD (Dip) NEGATIVE (NEGATIVE); UR CLARITY CLEAR (CLEAR); UR COLOR AMBER (YELLOW); UR GLUCOSE (Dip) NEGATIVE (NEGATIVE); UR KETONES (Dip) TRACE mg/dL (NEGATIVE); UR LEUKOCYTE ESTERASE (Dip) NEGATIVE Leu/ul (NEGATIVE); UR MUCUS MODERATE /HPF (NONE SEEN); UR NITRITE (Dip) NEGATIVE (NEGATIVE); UR RBC 5 /HPF (0-5); UR SPECIFIC GRAVITY (Dip) 1.029 (1.003-1.030); UR TOTAL PROTEIN (Dip) 1+ mg/dl (NEGATIVE); UR UROBILINOGEN (Dip) 1+ mg/dL (NEGATIVE)
[2017-08-29 13:48] LABS: BASOPHILS % 0.3 % (0.0-2.0); EOSINOPHILS # 0.1 10^3/ul (0.0-0.5); EOSINOPHILS % 1.4 % (0.0-7.0); HEMATOCRIT 43.2 % (42.0-52.0); HEMOGLOBIN 15.3 g/dl (14.0-18.0); LYMPHOCYTES # 1.3 10^3/ul (0.8-2.9); LYMPHOCYTES % 20.2 % (15.0-51.0); MEAN CORPUSCULAR HEMOGLOBIN 32.8 pg (29.0-33.0); MEAN CORPUSCULAR HGB CONC 35.4 g/dl (32.0-37.0); MEAN CORPUSCULAR VOLUME 92.5 fl (82.0-101.0); MEAN PLATELET VOLUME 9.9 fl (7.4-10.4); MONOCYTE # 0.6 10^3/ul (0.3-0.9); MONOCYTES % 8.9 % (0.0-11.0); NEUTROPHIL # 4.4 10^3/ul (1.6-7.5); NEUTROPHILS % 68.9 % (39.0-77.0); PLATELET COUNT 211 10^3/UL (140-415); RED BLOOD COUNT 4.67 10^6/ul (4.70-6.10); RED CELL DISTRIBUTION WIDTH 12.3 % (11.5-14.5); WHITE BLOOD COUNT 6.4 10^3/ul (4.8-10.8)
[2017-08-29 13:54] LABS: INR 0.98; PARTIAL THROMBOPLASTIN TIME 28.1 Sec (25.0-35.0)
[2017-08-29 14:11] LABS: CALCIUM 8.9 mg/dl (8.4-10.2); CREATININE 1.01 mg/dl (0.61-1.24); POTASSIUM 4.3 mmol/L (3.5-5.1)
[2017-08-29] MEDS ORDERED: LIDOCAINE 1% (MDV) 20 ML INJ ONE (15:37)
--- NOTE | 2017-08-29 15:45 | HPN ---
Date/Time of Note Date/Time of Note DATE: 08/29/17 TIME: 15:45 Interval H&P Admission Note Pt. seen H&P reviewed: No system changes RITESH RUIZ MD Aug 29, 2017 15:45
--- NOTE | 2017-08-29 15:48 | CONS ---
Date/Time of Note Date/Time of Note DATE: 08/29/17 TIME: 15:45 Assessment/Plan Assessment/Plan Chief Complaint/Hosp Course VASCULAR SURGERY H&P: Dear Doctors: Mr. Hill is a 66-year-old gentleman who presented with acute on chronic left lower extremity deep vein thrombosis back in October of 2016. At that time, patient underwent left lower extremity intervention with thrombectomy, venoplasty and IVC filter placement. Patient is here today for his vascular surveillance followup. He underwent ultrasound that demonstrated no acute DVTs identified. 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 Otherwise, he denies shortness of breath, chest pain, nausea, vomiting, fever or chills. Denies claudication or rest pain-like symptoms. Patient does have left lower extremity swelling that is on and off. Further the patient during his admission was evaluated by our hematology colleagues and underwent hypercoagulable workup. The patient's first episode of DVT was back in 2001 and he upon his hypercoagulable workup the patient had some abnormalities with protein C and S laboratory workup. The patient has followed with his lockstitch sleeve maker. No complains today. PHYSICAL EXAMINATION: GENERAL: Alert and oriented x3. LUNGS: Clear to auscultation bilaterally. HEART: S1, S2 present. ABDOMEN: Soft, nontender, nondistended. Bowel sounds positive. Truncal obesity. EXTREMITIES: Left lower extremity palpable femoral pulse, palpable pedal pulse. Motor, sensory intact. Cap refill 2 to 3 seconds, varicose veins and edema resolved ASSESSMENT AND PLAN: Left lower extremity acute on chronic DVT thrombosis. It seems the patient had developed a significant DVT and currently on anticoagulation Xarelto. The patient underwent intervention with IVC filter placement and our schedule is to plan to remove for him post his evaluation by our hematology colleagues. He underwent hypercoagulable blood work prior to that meeting. Discussed findings, plan and management with the patient and he understands with a certified bone drier operator. Discussed findings, plan and management with the patient with a certified bone drier operator and he understands. Optimize vascular status (blood pressure meds, diet, nutrition, exercise, sugar control, antiplatelets, cholesterol). Thank you for allowing us to partake in the care of your patient. Please call with any questions. Problems: Consultation Date/Type/Reason Admit Date/Time Social History Smoking Status: Never smoker Exam/Review of Systems Vital Signs Vitals Vital Signs Date Time Temp Pulse Resp B/P Pulse Ox O2 Delivery O2 Flow Rate FiO2 08/29/17 13:39 97.9 89 16 143/84 97 Room Air Results Result Diagram: 08/29/17 1320 08/29/17 1320 Results 24 hrs Laboratory Tests Test 08/29/17 13:00 08/29/17 13:20 08/29/17 13:26 Urine Color JOHN Urine Clarity CLEAR Urine pH 5.[address] 1.029 Urine Ketones TRACE A Urine Nitrite NEGATIVE Urine Bilirubin 1+ H Urine Urobilinogen 1+ H Urine Leukocyte Esterase NEGATIVE Urine Microscopic RBC 5 Urine Microscopic WBC 1 Urine Mucus MODERATE Urine Hemoglobin NEGATIVE Urine Glucose NEGATIVE Urine Total Protein 1+ H White Blood Count 6.4 Red Blood Count 4.67 L Hemoglobin 15.3 Hematocrit 43.2 Mean Corpuscular Volume 92.5 Mean Corpuscular Hemoglobin 32.8 Mean Corpuscular Hemoglobin Concent 35.4 Red Cell Distribution Width 12.3 Platelet Count 211 Mean Platelet Volume 9.9 # Neutrophils % 68.9 Lymphocytes % 20.2 Monocytes % 8.9 Eosinophils % 1.4 Basophils % 0.3 Nucleated Red Blood Cells % 0.0 Neutrophils # 4.4 Lymphocytes # 1.3 Monocytes # 0.6 Eosinophils # 0.1 Basophils # 0.0 Nucleated Red Blood Cells # 0.0 Prothrombin Time 13.0 Prothrombin Time Ratio 1.0 INR International Normalized Ratio 0.98 Activated Partial Thromboplast Time 28.1 Sodium Level 144 Potassium Level 4.3 Chloride Level 107 Carbon Dioxide Level 23 Anion Gap 18 H Blood Urea Nitrogen 18 Creatinine 1.01 Glucose Level 132 Calcium Level 8.9 Bedside Glucose 124 RITESH RUIZ MD Aug 29, 2017 15:48
--- NOTE | 2017-08-29 15:48 | PDOCDIS ---
Discharge Instructions DIAGNOSIS Discharge Diagnosis LLE DVT CONDITION Patient Condition: Good HOME CARE INSTRUCTIONS: Diet Instructions: Regular ACTIVITY: Activity Restrictions: Do not Drive Do not operate Machinery Do not operate Power Tool Avoid Heavy Housework Bathing Restrictions: Shower FOLLOW UP/APPOINTMENTS Follow-up Plan FOLLOWUP IN TWO WEEKS RITESH RUIZ MD Aug 29, 2017 15:48
--- NOTE | 2017-08-29 15:50 | SIPON ---
Date/Time of Note Date/Time of Note DATE: 08/29/17 TIME: 15:49 Operative Report Preoperative Diagnosis LLE DVT Postoperative Diagnosis SAME Operation/Procedure Performed CENTRAL VENOGRAM Surgeon see signature line school bus driver/teacher assistant NONE Anesthesia: moderate sedation Estimated blood loss: minimal Transfusion Required none Specimen NONE Grafts/Implants none Complications none RITESH RUIZ MD Aug 29, 2017 15:50
[2017-08-29] MEDS ORDERED: FENTAnyl 50 MCG/ML VIAL ONE (15:54)
[2017-08-29] MEDS ORDERED: MIDAZOLAM 1 MG/ML 2 ML INJ ONE (15:54)
[2017-08-29] MEDS ORDERED: IODIXANOL LOCM 50 ML BTL ONE (16:29)
[2017-08-29 16:50] VITALS: BP 138/85; PULSE 75; RESP 18
--- NOTE | 2017-08-30 12:47 | OPR ---
DATE OF OPERATION: 08/29/2017 SURGEON: Dallin Nair MD PREOPERATIVE DIAGNOSIS: Left lower extremity deep venous thrombosis. POSTOPERATIVE DIAGNOSIS: Left lower extremity deep venous thrombosis. ANESTHESIA: Local with moderate sedation. ESTIMATED BLOOD LOSS: Minimal. COMPLICATIONS: None. HEPARIN: None. CONTRAST: As recorded. ACCESS: Attempted right IJ, left internal jugular vein. CLOSURE: Manual compression. INDICATIONS: This is a 67-year-old gentleman with a known history of hypercoagulable state in which he had presented with acute on chronic left lower extremity deep venous thrombosis. The patient at that time had also underwent an IVC filter placement in which he has gone through his full course o f 6 months of anticoagulation and is scheduled to have the temporary IVC filter removed. The patien t has been coming along fine and has had no recurrence of his left lower extremity DVT. Patient had been informed of risks, benefits and alternatives. Risks including but not limited to bleeding, th rombosis, embolization, myocardial infarction, , stroke, device malfunction, infection, pneumot horax, nephrotoxicity and patient has agreed to proceed. PROCEDURES: 1. Ultrasound-guided access of the right internal jugular vein. 2. Ultrasound-guided access of the left internal jugular vein. 3. Inferior vena cava venogram. 4. Moderate sedation. 5. Fluoroscopy. DESCRIPTION OF PROCEDURE: The patient was brought into the angio suite and placed in supine positio n. The bed was placed in Trendelenburg position and bilateral neck and chest were prepped and drape d in usual standard sterile fashion. Timeout was completed and verified correct patient information , procedure, site, positioning and IVC filter removal kit prior to beginning this procedure. At thi s point, the skin and subcutaneous tissue was anesthetized with 1% lidocaine. Landmarks were identi fied and using a micro access needle, the right internal jugular vein was accessed. The wire was at tempted to be placed under fluoroscopy; however, it was identified the patient that the wire w ould not pass the internal jugular vein and the subclavian vein junction. It seems that the patient had stenosis/occlusion in that segment. Therefore, this access site was aborted and attempts from the left IJ were initiated. Using 1% lidocaine, the skin and subcutaneous tissue was anesthetized. Under ultrasound guidance, micropuncture needle was then used to access left internal jugular vein. Wire was placed under fluoroscopy. Using the microcatheter, it was placed over the wire. The wir e was then removed and a stiff wire was placed in the inferior vena cava. The tract was sequentiall y dilated in order to place the IVC filter removal kit sheath. At this point, the sheath was placed in the infrarenal vena cava and a central venogram was performed. The catheter was in a second ord er selection as we had to cross the left brachiocephalic vein to the inferior vena cava. At this po int, the IVC filter was identified and our snare device was used to catch the hook of the IVC filter . This seemed to be unsuccessful on multiple planes with our fluoro. At this point, we subsequentl y went ahead and placed the Bentson wire and using a balloon, attempt was made to to separate the fibrin cap of the IVC filter hook from the wall of the inferior vena cava, but seemed to be unsu ccessful. Multiple attempts were then made using a different snare wire and it seemed that interven tion will require retrograde and antegrade approach from the groin and from the neck. At this point , the decision was made to discuss the findings with the patient and to bring the patient back at a future time for further intervention. The patient tolerated procedure well. All sheaths, catheters and wires were removed. Manual compression was held in the left internal jugular vein. The patien t was taken to the postanesthesia care unit in stable condition. Dictated By: DALLIN ELLIOTT/PAULA Conf#: [id number] DID#: [id number]
--- NOTE | 2017-08-30 21:47 | RADRPT ---
Vent Rate: 83 bpm RR Interval: 0 msec MT Interval: 146 msec QRS Duration: 86 msec QT Interval: 376 msec QTC Interval: 441 msec P-R-T [place]: 42 - 24 - 55 degrees Normal sinus rhythm Normal ECG Electronically Signed By: Ming Arteaga [id number]
== END 2017-08-29 17:10 | disposition home or self-care (01) ==
LOC: SDS 12:34
PROVIDERS: ATTEND Student in an Organized Health Care Education/Training Program
DX: I82.402 Acute embolism and thrombosis of unspecified deep veins of left lower extremity (principal)
CPT/HCPCS: 36010; 80048; 81001; 82962; 85025; 85610; 85730; 93005; J1644; J2250; J3010; Q9967; Z7610

== ENCOUNTER 2017-09-27 09:01 | Day surgery (SDC) | payer OTHER ==
[~2017-09-27] VITALS: Ht 167.6 cm; Wt 79.9 kg
[~2017-09-27 09:01] MED LIST changes: +ASPI-664 PO; +GLIP-160 PO; -LISI-313 PO; +LOSA100T7 PO; -RIVA15TA PO
[2017-09-27] MEDS ORDERED: GLIP-160 PO (09:35)
[2017-09-27 10:08] VITALS: Ht 167.6 cm; Wt 79.9 kg
[2017-09-27 10:11] LABS: BASOPHILS % 0.7 % (0.0-2.0); EOSINOPHILS # 0.1 10^3/ul (0.0-0.5); EOSINOPHILS % 2.2 % (0.0-7.0); HEMATOCRIT 40.8 % (42.0-52.0); HEMOGLOBIN 14.5 g/dl (14.0-18.0); LYMPHOCYTES # 0.9 10^3/ul (0.8-2.9); MEAN CORPUSCULAR HEMOGLOBIN 32.7 pg (29.0-33.0); MEAN CORPUSCULAR HGB CONC 35.5 g/dl (32.0-37.0); MEAN CORPUSCULAR VOLUME 92.1 fl (82.0-101.0); MEAN PLATELET VOLUME 10.7 fl (7.4-10.4); MONOCYTE # 0.4 10^3/ul (0.3-0.9); MONOCYTES % 9.8 % (0.0-11.0); NEUTROPHIL # 2.7 10^3/ul (1.6-7.5); NEUTROPHILS % 65.1 % (39.0-77.0); PLATELET COUNT 186 10^3/UL (140-415); RED BLOOD COUNT 4.43 10^6/ul (4.70-6.10); RED CELL DISTRIBUTION WIDTH 12.7 % (11.5-14.5); WHITE BLOOD COUNT 4.1 10^3/ul (4.8-10.8)
[2017-09-27 10:16] VITALS: BP 168/84; PULSE 70; RESP 16
[2017-09-27 10:20] LABS: HOLD TRANSMISSIONS 1
[2017-09-27] MEDS ORDERED: MIDAZOLAM 1 MG/ML 2 ML INJ ONE (10:39)
[2017-09-27] MEDS ORDERED: HEPARIN 1000 UNITS/ML 10 ML INJ ONE (10:39)
[2017-09-27] MEDS ORDERED: LIDOCAINE 1% (MDV) 20 ML INJ ONE (10:39)
[2017-09-27] MEDS ORDERED: FENTAnyl 50 MCG/ML VIAL ONE (10:40)
[2017-09-27] MEDS ORDERED: IODIXANOL LOCM 100 ML BTL ONE (10:40)
--- NOTE | 2017-09-27 10:42 | CONS ---
Date/Time of Note Date/Time of Note DATE: 09/27/17 TIME: 10:37 Assessment/Plan Assessment/Plan Chief Complaint/Hosp Course VASCULAR SURGERY H&P: Dear Doctors: Mr. Hill is a 66-year-old gentleman who presented with acute on chronic left lower extremity deep vein thrombosis back in October of 2016. At that time, patient underwent left lower extremity intervention with thrombectomy, venoplasty and IVC filter placement. Patient is here today for his vascular surveillance followup. He underwent ultrasound that demonstrated no acute DVTs identified. 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 Otherwise, he denies shortness of breath, chest pain, nausea, vomiting, fever or chills. Denies claudication or rest pain-like symptoms. Patient does have left lower extremity swelling that is on and off. Further the patient during his admission was evaluated by our hematology colleagues and underwent hypercoagulable workup. The patient's first episode of DVT was back in 2001 and he upon his hypercoagulable workup the patient had some abnormalities with protein C and S laboratory workup. Subsequently, the patient underwent attempt of IVC filter removal however his filter hook seemed to be imbedded in the wall of the IVC and unable to remove from the IJ access. He therefore required to return for groin and IJ access for another attempt of IVC filter removal. The patient has followed with his quality control systems manager. No complains today. PHYSICAL EXAMINATION: GENERAL: Alert and oriented x3. LUNGS: Clear to auscultation bilaterally. HEART: S1, S2 present. ABDOMEN: Soft, nontender, nondistended. Bowel sounds positive. Truncal obesity. EXTREMITIES: Left lower extremity palpable femoral pulse, palpable pedal pulse. Motor, sensory intact. Cap refill 2 to 3 seconds, varicose veins and edema resolved ASSESSMENT AND PLAN: Left lower extremity acute on chronic DVT thrombosis. It seems the patient had developed a significant DVT and currently on anticoagulation Xarelto. The patient underwent intervention with IVC filter placement and was scheduled to remove the filter however it was unsuccessful via the left IJ approach therefore will plan for groin and IJ access to remove the filter today. Discussed findings, plan and management with the patient and he understands with a certified profile stitching machine operator. Optimize vascular status (blood pressure meds, diet, nutrition, exercise, sugar control, antiplatelets, cholesterol). Thank you for allowing us to partake in the care of your patient. Please call with any questions. Problems: Consultation Date/Type/Reason Admit Date/Time Social History Smoking Status: Never smoker Exam/Review of Systems Vital Signs Vitals Vital Signs Date Time Temp Pulse Resp B/P Pulse Ox O2 Delivery O2 Flow Rate FiO2 09/27/17 10:16 98.7 70 16 168/84 98 Room Air Results Result Diagram: 09/27/17 0948 Results 24 hrs Laboratory Tests Test 09/27/17 09:48 09/27/17 10:15 White Blood Count 4.1 #L Red Blood Count 4.43 L Hemoglobin 14.5 Hematocrit 40.8 L Mean Corpuscular Volume 92.1 Mean Corpuscular Hemoglobin 32.7 Mean Corpuscular Hemoglobin Concent 35.5 Red Cell Distribution Width 12.7 Platelet Count 186 Mean Platelet Volume 10.7 H Neutrophils % 65.1 Lymphocytes % 22.0 Monocytes % 9.8 Eosinophils % 2.2 Basophils % 0.7 Nucleated Red Blood Cells % 0.0 Neutrophils # 2.7 Lymphocytes # 0.9 Monocytes # 0.4 Eosinophils # 0.1 Basophils # 0.0 Nucleated Red Blood Cells # 0.0 CBC Results Faxed/Phoned 1 *H Bedside Glucose 214 RITEHS RUIZ MD Sep 27, 2017 10:42
--- NOTE | 2017-09-27 10:44 | PDOCDIS ---
Discharge Instructions DIAGNOSIS Discharge Diagnosis DVT CONDITION Patient Condition: Good HOME CARE INSTRUCTIONS: Diet Instructions: Low Fat /Cholesterol ACTIVITY: Activity Restrictions: Slowly Increase Activity Rest between Activity Avoid heavy lifting Do not Drive Do not operate Machinery Do not operate Power Tool Avoid Heavy Housework Bathing Restrictions: Shower FOLLOW UP/APPOINTMENTS Follow-up Plan MAY REMOVE DRESSING TOMORROW MAY SHOWER TOMORROW CONTINUE HIS ANTICOAGULATION MEDICATION FOLLOWUP IN 2 WEEKS RITESH RUIZ MD Sep 27, 2017 10:44
[2017-09-27 12:06] LABS: INR 1.15; PROTIME 14.9 Sec (11.9-14.9); PT RATIO 1.2
[2017-09-27 12:11] LABS: ALBUMIN 3.8 g/dl (3.3-4.9); ALBUMIN/GLOBULIN RATIO 1.22; BILIRUBIN,INDIRECT 1.2 mg/dl (0-1.1); BILIRUBIN,TOTAL 1.2 mg/dl (0.2-1.3); TOTAL PROTEIN 6.9 g/dl (6.1-8.1)
[2017-09-27 12:12] LABS: PARTIAL THROMBOPLASTIN TIME 113.3 Sec (25.0-35.0)
--- NOTE | 2017-09-27 12:15 | SIPON ---
Date/Time of Note Date/Time of Note DATE: 09/27/17 TIME: 12:14 Operative Report Preoperative Diagnosis LLE DVT Postoperative Diagnosis SAME Operation/Procedure Performed CENTRAL VENOGRAM Surgeon see signature line assistant superintendent NONE Anesthesia: moderate sedation Estimated blood loss: minimal Transfusion Required none Specimen NONE Grafts/Implants none Complications none RITESH RUIZ MD Sep 27, 2017 12:15
[2017-09-27 12:16] LABS: CALCIUM 8.7 mg/dl (8.4-10.2); CREATININE 0.69 mg/dl (0.61-1.24); POTASSIUM 4.3 mmol/L (3.5-5.1)
[2017-09-27] MEDS ORDERED: RIVAROXABAN 20 MG TABLET PO ONE (12:30)
[2017-09-27 12:48] VITALS: BP 137/72; PULSE 64; RESP 18
--- NOTE | 2017-09-27 12:56 | OPR ---
DATE OF OPERATION: 09/27/2017 SURGEON: Dallin Nair MD. PREOPERATIVE DIAGNOSIS: Left lower extremity deep vein thrombosis. POSTOPERATIVE DIAGNOSIS: Left lower extremity deep vein thrombosis. ANESTHESIA: Local with moderate sedation. ESTIMATED BLOOD LOSS: Minimal. COMPLICATIONS: None. HEPARIN: 5000 units intravenously. CONTRAST: As recorded. ACCESS: Left internal jugular vein and left common femoral vein. CLOSURE: Manual compression. SEDATION: Under physician supervision, moderate sedation was administered intravenously under tanna nuous monitoring by the interventional team and attending physician. Pulse, oximeter, heart rate an d blood pressures were continuously monitored by the interventional surgeon. The physician spent ti me was 45 minutes of [id number] sedation time with the patient. INDICATIONS: This is a 67-year-old gentleman with known history of hypercoagulable state in which h e had presented with acute on chronic left lower extremity deep vein thrombosis. The patient at suzanne t time also underwent an IVC filter placement in which he had gone through his full course of 6 yessy hs of anticoagulation and scheduled to have temporary IVC filter removed. The patient was recently attempted on 08/29/2017 for IVC filter removal. However, it seems that the IVC filter hook has deve loped a fibrin cap to the inferior vena cava and was difficult to be able to remove it at that time. Therefore, the patient was brought back for reattempt with left internal jugular vein and common f emoral vein access in order to be able to have an approach from both antegrade and retrograde for po ssible removal of the IVC filter. Therefore, the risks, benefits and alternatives were discussed wi th the patient, he agreed to proceed understanding all the risks involved. The risks including but not limited to bleeding, thrombosis, embolization, myocardial infarction, , stroke, device malf unction, infection, pneumothorax and nephrotoxicity and the patient has agreed to proceed. PROCEDURE: Ultrasound-guided axis of left internal jugular vein, ultrasound-guided access of the le ft common femoral vein, inferior vena cava venogram, moderate sedation, fluoroscopy and second order selection for catheterization. DESCRIPTION OF PROCEDURE: The patient was brought into the angio suite and placed in supine positio n. The bed was placed in Trendelenburg position and left neck and left groin was prepped and draped and shaved in usual standard sterile fashion. Timeout was completed verifying the patient and abisai ect information, procedure, site, positioning and an IVC filter removal kit prior to beginning the p rocedure. At this point, the skin and subcutaneous tissues were anesthetized with 1% lidocaine. La ndmarks were identified using a micro access needle and ultrasound guidance. The micropuncture need le was then used to access the left internal jugular vein. A wire was placed on fluoroscopy in the left brachiocephalic vein. Using a microcatheter, the needle was removed and exchanged. At this po int, the wire was then changed to a Bentson wire. A 5-[place] sheath was then exchanged with microca theter. At this point, using a Bentson guiding catheter and a Glidewire, we were able to cannulate the inferior vena cava. This is done in a first order selection. At this point, our Glidewire was exchanged to an Amplatz stiff wire. Once this was performed, our 5-[place] sheath was then exchanged to a -[place] sheath in the left internal jugular vein. All catheters were flushed with hepari nized saline solution. At this point, our Destination sheath was placed as far as it could go; jay borja, it came short of the IVC filter hook. At this point, using the [facility] IVC filter removal kit, w john went ahead and attempted multiple times to be able to remove the IVC filter; however, still were u faina to get accessibility to the IVC filter hook. Therefore, at this point, we decided to go ahead and use our left common femoral vein access. At this point using a Berenstein catheter, we were ab dunlap to guide our Bentson wire posterior to where the IVC filter hook seems to be embedded into the wa ll of the IVC. At this point, we went ahead and repositioned our wire in that segment and went ahea d and performed a venoplasty of the central vein with a 10 x 40 balloon. Once this was performed, t he hook seemed to be more accessible for our snare wire to hook on. We attempted this maneuver a co uple times; however, it was unsuccessful. At this point, it was determined that this will need furt her interventions that are advanced and multidisciplinary with our interventional radiology colleagu uzma. Therefore, all catheters, wires and sheaths were removed and manual compression was held. The patient tolerated the procedure well and was given 5000 units intravenously during the procedure. F urther, the patient will be continued on his Xarelto medication which was not held prior to procedur e. PLAN: We will have the patient be referred to a multidisciplinary center in which we, with interven tional radiology, can plan to intervene and have the IVC filter removed with advanced techniques suzanne t will require further interventions. Dictated By: DALLIN ELLIOTT/PAULA Conf#: [id number] DID#: [id number]
[2017-09-27 13:30] VITALS: BP 137/70; PULSE 70; RESP 18
== END 2017-09-27 14:51 | disposition home or self-care (01) ==
LOC: SDS 09:01
PROVIDERS: ATTEND Student in an Organized Health Care Education/Training Program
DX: I82.402 Acute embolism and thrombosis of unspecified deep veins of left lower extremity (principal)
CPT/HCPCS: 36010; 80053; 82962; 85025; 85610; 85730; J1644; J2250; J3010; Q9967; Z7610